=== PATIENT | female | born 1985 | race Caucasian/White ===

== ENCOUNTER 2019-08-18 14:04 | Emergency (ER) | payer BC, SELFPAY ==
[2019-08-18 14:10] VITALS: BP 135/74; PULSE 82; RESP 16; TEMP 36.3; O2SAT 98; BMI 27.8
--- NOTE | 2019-08-18 14:29 | ED_ITS ---
HPI - Wound/Laceration General: Chief Complaint: Wound/Laceration Stated Complaint: FINGER LACERATION Time Seen by Provider: 08/18/19 14:29 Source: patient and RN notes reviewed History of Present Illness: HPI narrative: 33-year-old female was changing a trash bag and cut her right index finger on a piece of glass through the bag. This occurred at her home. She bandaged it tightly and states that the tip of her finger is a little numb but she thinks that is from wrapping it too tight. Tetanus is not up-to-date. Denies any other injuries or symptoms did not do this purpose fully. She is right-hand dominant. Associated symptoms: Denies chills, fever(s), nausea or vomiting Review of Systems General: Reports: 10 or more systems reviewed and unremarkable except in HPI and below Const: Denies: fever or chills Eyes: Denies: change in vision ENMT: Denies: throat pain Card: Denies: chest pain Resp: Denies: shortness of breath GI: Denies: abdominal pain, nausea, vomiting or change in bowel habits : Denies: difficulty urinating Musc: Denies: muscle weakness Skin/Breast: Reports: rash and other (Laceration to right index finger) Neuro: Denies: headache Psych: Denies: hopelessness or suicidal ideation Endo: Denies: excessive urination Richard/Lymph: Denies: easy bruising or easy bleeding All/Imm: Denies: hives PFSH ED PFSH: Social History Smoking and tobacco status: never smoked Physical Exam Const: COMMON NORMALS: no apparent distress, oriented x3, alert and well nourished HENMT: COMMON NORMALS: normocephalic and external nose normal HEAD & SCALP: normocephalic NOSE: external nose normal MOUTH: no trismus Eye: COMMON NORMALS: EOMs intact bilaterally and conjunctivae normal CONJUNCTIVA: Yes conjunctivae normal Resp: EFFORT & INSPECTION: Yes able to speak in complete sentences Neuro: COMMON NORMALS: oriented x3 SENSORIUM/ORIENTATION: Yes alert Psych: COMMON NORMALS: mental status grossly normal Skin: NARRATIVE SKIN EXAM: Less than 1 cm shallow linear laceration to the palmar surface of her right index finger distal phalanx. Bleeding controlled. Normal extension and flexion of the phalanx. Procedures Laceration Laceration 1: Side (If applicable): right Size (cm): 1 Description: linear and clean Depth: simple, single layer Pre-repair: wound explored Skin layer closed with: other (steripstrips and dermabond) Course Vital Signs: Vital signs: Vital Signs Temperature 97.4 F L 08/18/19 14:10 Pulse Rate 72 08/18/19 15:29 Respiratory Rate 16 08/18/19 15:29 Blood Pressure 123/66 08/18/19 15:29 Pulse Oximetry 99 08/18/19 15:29 MDM - Wound/Laceration Imaging Data^: finger xr: My impression: no FB Discharge Plan Discharge Patient Disposition: Home, Self-Care Condition: Stable Prescriptions: No Action No Known Home Medications RF: 0 Referrals: Tish Mathew DO [Primary Care Provider] - Patient Instructions: Finger Laceration (ED) Discharge Date/Time: 08/18/19 15:30 Coding Level of Care Code ED Digital Recruiter for Bry Fwd Exam Detailed
--- NOTE | 2019-08-18 14:35 | XR_ITS ---
WS: [id number] FINGER RIGHT TECHNIQUE: 3 views of the right index finger CLINICAL INFORMATION: rle out fb COMPARISON: None. FINDINGS: Soft tissue laceration index finger. No evidence of radiopaque foreign body. No acute fractures. XR/XR finger RT min 2V [id number] IMPRESSION: No evidence of radiopaque foreign body.
[2019-08-18] MEDS: tetanus-dipt-pertussis 0.5 mL SDV IM (15:22)
[2019-08-18 15:29] VITALS: BP 123/66; PULSE 72; RESP 16; O2SAT 99
== END 2019-08-18 15:30 | disposition home or self-care (01) ==
PROVIDERS: Emergency Provider Emergency Medicine; Family Provider Family Medicine; PCP Family Medicine
DX: S61.210A Laceration without foreign body of right index finger without damage to nail, initial encounter (principal); W25.XXXA Contact with sharp glass, initial encounter; Z23 Encounter for immunization
CPT/HCPCS: 12001; 12345; 73140; 90471; 90715; 99282; A6446

== ENCOUNTER 2020-07-02 20:41 | Emergency (ER) | payer BC, SELFPAY ==
[2020-07-02 20:52] VITALS: BP 128/81; PULSE 92; RESP 16; TEMP 36.8; O2SAT 98; BMI 27.9
--- NOTE | 2020-07-02 21:01 | XR_ITS ---
WS: [id number] Exam: XR chest 2V* [id number] Date/Time of Exam: 07/02/2020 9:01 PM Reason For Exam: SOB x 1 month Findings: The lungs are clear and fully expanded. Costophrenic angles are sharp. No infiltrates. Bronchovascula r relief appears normal. Cardiac silhouette is unremarkable. Bony elements are intact. XR/XR chest 2V* [id number] IMPRESSION: Unremarkable chest radiograph.
--- NOTE | 2020-07-02 21:45 | ECG_ITS ---
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 Measurements Intervals [place] Rate: 100 P: 64 NM: 171 QRS: 51 QRSD: 90 T: -64 QT: 327 QTc: 423 Interpretive Statements SINUS TACHYCARD[address] DEVIATION AND MODERATE T-WAVE ABNORMALITY, CONSIDER LATERAL ISCHEMIA [-0.1+ mV T WAVE IN I/aVL/V5/V6] ST DEVIATION AND MODERATE T-WAVE ABNORMALITY, CONSIDER INFERIOR ISCHEMIA [-0.1+ mV T WAVE IN II/aVF] No previous ECG available for comparison Electronically Signed On 07-03-2020 12:42:26 ELECTRONIC TECHNICIAN by Velma Suazo M.D. [email or web address]
[2020-07-02 22:06] VITALS: BP 137/74; PULSE 78; RESP 18; O2SAT 99
[2020-07-02] MEDS: ondansetron 2 mg/ML SDV 2 mL 4 MG IVP (22:11)
[2020-07-02] MEDS: sodium chloride 0.9% 1,000 ML 999 ML IV (22:11)
[2020-07-02] MEDS: dexamethasone 4 mg/mL INJ 6 MG IVP (22:12)
[2020-07-02 22:15] LABS: Basophils # 0.1 10^3/uL (0.0-0.1); Basophils % 0.5 %; Eosinophils # 0.1 10^3/uL (0.0-0.8); Eosinophils % 0.5 %; Hematocrit 38.8 % (37.0-47.0); Hemoglobin 12.4 g/dL (11.5-15.3); Lymphocytes # 1.8 10^3/uL (0.8-4.8); Lymphocytes % 15.9 %; Mean Corpuscular Hemoglobin 28.4 pg (28.0-34.0); Mean Corpuscular Volume 88.8 fL (81-99); Mean Platelet Volume 10.6 fL (7.4-10.4); Monocytes # 0.5 10^3/uL (0.2-0.9); Monocytes % 4.8 %; Neutrophils # 8.65 10^3/uL (1.8-7.7); Neutrophils % 77.9 %; Nucleated Red Blood Cells % 0 %; Platelet Count 288 10^3/cmm (130-400); Red Blood Count 4.37 10^6/uL (4.1-5.3); White Blood Count 11.1 10^3/uL (4.0-10.0)
[2020-07-02 22:24] LABS: D Dimer 0.41 ug/mIFEU (0-0.59)
[2020-07-02 22:27] LABS: HCG Qualitative Urine. Negative (Negative)
[2020-07-02 22:29] LABS: Troponin(5th) Baseline 6 ng/L (0-10)
[2020-07-02 22:35] LABS: Alanine Aminotransferase 14 U/L (0-33); Albumin Level 4.5 g/dL (3.5-5.2); Alkaline Phosphatase 66 IU/L (35-105); Anion Gap 14.1 (5-19); Aspartate Amino Transferase 16 U/L (0-32); Blood Urea Nitrogen 11 mg/dL (6-20); Calcium 9.3 mg/dL (8.5-10.5); Carbon Dioxide 25 mmol/L (22-29); Chloride 103 mmol/L (98-107); Globulin 3.2 g/dL (1.3-4.6); Glomerular Filtration Rate 114.4 mL/min (90-130); Glucose 106 mg/dL (65-115); Osmolality Calculated 286 mOsm/kg (285-295); Potassium 4.1 mmol/L (3.5-5.1); Sodium 138 mmol/L (136-145); Total Bilirubin 0.2 mg/dL (0.15-1.2); Total Protein 7.7 g/dL (6.6-8.7)
--- NOTE | 2020-07-02 23:31 | W.ED.CHESTPA ---
HPI - Chest Pain General: Chief Complaint: Chest Pain Stated Complaint: cp/right arm numbness Time Seen by Provider: 07/02/20 21:32 History of Present Illness: HPI narrative: The patient is a 34-year-old female who comes to the ER complaining of bitemporal headache, chest pain and, right arm tingling. She says sometimes when she gets migraines they give her tingles all over her entire body and she has been treated with 2 different antibiotics in the past month for a bilateral ear infection. She says she is still having pressure in her ears and it is triggering headaches. She is wondering what is causing it. Her ears are still slightly bulging and red. She is continuing to take Bactrim. MD complaint: chest pain Timing of current episode: episodic Onset: during rest Associated symptoms: Deny abdominal pain, dyspnea or palpitations Review of Systems General: Reports: 10 or more systems reviewed and unremarkable except in HPI and below Const: Denies: fatigue Eyes: Denies: change in vision, blurry vision or eye redness ENMT: Denies: throat pain, swelling of lips/tongue, ear or mastoid pain or nasal congestion Card: Reports: chest pain; Denies: palpitations, irregular heart rhythm, edema, dyspnea on exertion or orthopnea Resp: Denies: dyspnea, productive cough or non-productive cough GI: Denies: abdominal pain, diarrhea or GI cramping : Denies: flank pain, difficulty voiding, urinary frequency or urinary urgency Musc: Denies: neck pain, back pain, extremity pain, joint pain, joint redness, limited range of motion or muscle weakness Skin/Breast: Denies: rash, pruritus, erythema, skin pain or skin tenderness Neuro: Reports: headache(s); Denies: numbness in extremities, weakness in extremities, sensory changes, difficulty walking, dizziness, confusion or Slurred speech present Psych: Denies: anxiety or depression Endo: Denies: polyuria All/Imm: Denies: urticaria, throat swelling or tongue swelling PFSH ED PFSH: Medical History No pertinent past medical history Surgical History H/O removal of cyst Social History Smoking and tobacco status: never smoked Alcohol intake: never Female Reproductive History: Date of last menstrual period: 05/21/20 Physical Exam Const: COMMON NORMALS: no acute distress, average body habitus, patient oriented x3, no limitations, healthy appearing, alert and well nourished GENERAL APPEARANCE: cooperative, comfortable, well kempt and well developed ORIENTATION/CONSCIOUSNESS: Yes awake, Yes oriented to person, Yes oriented to place and Yes oriented to time HENMT: COMMON NORMALS: normocephalic, external ears normal and Normal external nose present HEAD & SCALP: normal to inspection and normocephalic NOSE: Normal external nose present EXTERNAL EAR: Yes external ears normal MOUTH: Normal oral and palatal mucosa present THROAT: posterior oropharynx normal OTHER: Left tympanic membrane bulging with mild erythema. Right tympanic membrane not visible due to cerumen. Eye: COMMON NORMALS: Equal, round and reactive pupils present and EOMs intact bilaterally GENERAL EYE: appearance normal, both eyes and all related structures PUPIL: Yes Equal, round and reactive pupils present Neck/C-Spine: COMMON NORMALS: full ROM, no lymphadenopathy, no meningeal signs and no JVD GENERAL: Yes normal visual inspection Lymph: LYMPHATIC: no lymphadenopathy noted Chest: COMMONS NORMALS: normal inspection of the chest and normal palpation of entire chest wall Resp: COMMON NORMALS: normal respiratory effort, No retractions, No use of accessory muscles, clear to auscultation bilaterally and percussion normal EFFORT & INSPECTION: Yes able to speak in complete sentences AUSCULTATION: clear to auscultation bilaterally PERCUSSION: percussion normal Cardio: COMMON NORMALS: no JVD, regular rate, regular rhythm, S1 normal heart sound present, S2 normal heart sound present and Peripheral pulses 2+ throughout RATE: regular rate RHYTHM: regular rhythm HEART SOUNDS: S1 normal heart sound present and S2 normal heart sound present PERIPHERAL PULSES: Peripheral pulses 2+ throughout GI: COMMON NORMALS: Normal to inspection, nondistended, normoactive bowel sounds present, Soft to palpation, non-tender and no masses INSPECTION: Yes normal to inspection PALPATION: Yes Soft to palpation : COMMON NORMALS: Yes no CVA tenderness BLADDER/KIDNEY EXAM: Yes no CVA tenderness Back/Pelvis: COMMON NORMALS: no CVA tenderness, thoracic and lumbar spine normal to inspection, no thoracic nor lumbar tenderness and thoraco-lumbar ROM normal Extremity: COMMON NORMALS: normal to inspection, full ROM, capillary refill normal, no joint enlargement and no pedal edema GENERAL: Yes normal exam except as noted Neuro: COMMON NORMALS: patient oriented x3, CN's II-XII intact bilaterally, moves all extremities, no focal motor deficits, no sensory deficits noted and gait normal SENSORIUM/ORIENTATION: Yes alert, Yes oriented to person, Yes oriented to place and Yes oriented to time MENINGEAL SIGNS: Yes no meningeal signs Psych: COMMON NORMALS: mental status grossly normal, Normal thought process present, cooperative, normal affect and speech normal APPEARANCE: Yes well kempt ATTITUDE: Yes calm SPEECH: Yes normal speech THOUGHT PROCESS: Normal thought process present Skin: COMMON NORMALS: no rashes or lesions noted GENERAL SKIN EXAM: no rashes or lesions noted Course ED course: She is likely continuing to have headaches from her ear problem. Gave her fluids and IV steroids to help. Likely when her ears adjust her headaches will resolve. We will discharge her with a Medrol Dosepak. She has a primary care physician she can follow-up with in 3 to 5 days. ER with worsening symptoms. Her chest pain is on is unclear cause but unlikely cardiac and it resolved spontaneously in the ER. Vital Signs: Vital signs: Vital Signs Temperature 98.3 F 07/02/20 20:52 Pulse Rate 78 07/02/20 22:06 Respiratory Rate 18 07/02/20 22:06 Blood Pressure 137/74 07/02/20 22:06 Pulse Oximetry 99 07/02/20 22:06 MDM - Chest Pain Lab Data: Labs: Lab Results 07/02/20 07/02/20 07/02/20 Range/Units 22:08 22:08 22:08 WBC 11.1 H (4.0-10.0) 10^3/ uL RBC 4.37 (4.1-5.3) 10^6/u L Hgb 12.4 (11.5-15.3) g/dL Hct 38.8 (37.0-47.0) % MCV 88.8 (81-99) fL MCH 28.4 (28.0-34.0) pg MCHC 32.0 (30.0-36.0) g/dL RDW 13.0 (12.1-15.1) % Plt Count 288 (130-400) 10^3/c mm MPV 10.6 H (7.4-10.4) fL Neut % (Auto) 77.9 % Lymph % (Auto) 15.9 % [place] % (Auto) 4.8 % Eos % (Auto) 0.5 % Baso % (Auto) 0.5 % Neut # (Auto) 8.65 H (1.8-7.7) 10^3/u L Lymph # (Auto) 1.8 (0.8-4.8) 10^3/u L [place] # (Auto) 0.5 (0.2-0.9) 10^3/u L Eos # (Auto) 0.1 (0.0-0.8) 10^3/u L Baso # (Auto) 0.1 (0.0-0.1) 10^3/u L Nucleated RBC % (a uto) 0 % Nucleated RBCs # 0.0 /100WBC D-Dimer 0.41 (0-0.59) ug/mIFE U Sodium 138 (136-145) mmol/L Potassium 4.1 (3.5-5.1) mmol/L Chloride 103 (98-107) mmol/L Carbon Dioxide 25 (22-29) mmol/L Anion Gap 14.1 (5-19) BUN 11 (6-20) mg/dL Creatinine 0.6 (0.5-0.9) mg/dL GFR Calculation 114.4 (90-130) mL/min Glucose 106 (65-115) mg/dL Calculated Osmolal ity 286 (285-295) mOsm/k g Calcium 9.3 (8.5-10.5) mg/dL Total Bilirubin 0.2 (0.15-1.2) mg/dL AST 16 (0-32) U/L ALT 14 (0-33) U/L Alkaline Phosphata se 66 (35-105) IU/L Troponin T Baselin e (0-10) ng/L Total Protein 7.7 (6.6-8.7) g/dL Albumin 4.5 (3.5-5.2) g/dL Globulin 3.2 (1.3-4.6) g/dL HCG, Qual (Negative) 07/02/20 07/02/20 Range/Units 22:08 22:08 WBC (4.0-10.0) 10^3/ uL RBC (4.1-5.3) 10^6/u L Hgb (11.5-15.3) g/dL Hct (37.0-47.0) % MCV (81-99) fL MCH (28.0-34.0) pg MCHC (30.0-36.0) g/dL RDW (12.1-15.1) % Plt Count (130-400) 10^3/c mm MPV (7.4-10.4) fL Neut % (Auto) % Lymph % (Auto) % [place] % (Auto) % Eos % (Auto) % Baso % (Auto) % Neut # (Auto) (1.8-7.7) 10^3/u L Lymph # (Auto) (0.8-4.8) 10^3/u L [place] # (Auto) (0.2-0.9) 10^3/u L Eos # (Auto) (0.0-0.8) 10^3/u L Baso # (Auto) (0.0-0.1) 10^3/u L Nucleated RBC % (a uto) % Nucleated RBCs # /100WBC D-Dimer (0-0.59) ug/mIFE U Sodium (136-145) mmol/L Potassium (3.5-5.1) mmol/L Chloride (98-107) mmol/L Carbon Dioxide (22-29) mmol/L Anion Gap (5-19) BUN (6-20) mg/dL Creatinine (0.5-0.9) mg/dL GFR Calculation (90-130) mL/min Glucose (65-115) mg/dL Calculated Osmolal ity (285-295) mOsm/k g Calcium (8.5-10.5) mg/dL Total Bilirubin (0.15-1.2) mg/dL AST (0-32) U/L ALT (0-33) U/L Alkaline Phosphata se (35-105) IU/L Troponin T Baselin e 6 (0-10) ng/L Total Protein (6.6-8.7) g/dL Albumin (3.5-5.2) g/dL Globulin (1.3-4.6) g/dL HCG, Qual Negative (Negative) Discharge Plan Discharge Patient Disposition: Home Clinical Impression: Headache Condition: Stable Prescriptions: New Medrol (Krishna) 4 mg tablets,dose pack See Rx Instructions .ROUTE .COMPLEX Qty: 21 RF: 0 Discontinued prednisone 20 mg tablet 20 mg PO DAILY 5 Days Qty: 5 RF: 0 No Action amoxicillin-pot clavulanate [Augmentin] 875-125 mg tablet 1 tab PO BID 10 Days Qty: 20 RF: 0 Discharge Orders: Discharge ED (Routine); Ordered 07/02/20 Ordered By: Lenny Benton Referrals: Tish Mathew DO [Primary Care Provider] - Discharge Diet: Advance as tolerated Discharge Activity: Resume usual activity Patient Instructions: Acute Headache (ED), Opioid Safety Activity Restrictions/Additional Instructions: Please take the steroid pack and see if it makes your ears and headache feel better. Please follow-up with your primary care physician in a few days to monitor improvement of your symptoms. Return to the ER with worsening symptoms Coding Level of Care Code ED Athletic Turf Worker for Bry Gaona Exam Comprehensive
[2020-07-03 00:11] VITALS: BP 124/59; PULSE 69; RESP 17; TEMP 36.8; O2SAT 97
== END 2020-07-03 00:11 | disposition home or self-care (01) ==
PROVIDERS: Emergency Provider Family Medicine; PCP Family Medicine
DX: R51.9 Headache, unspecified (principal)
CPT/HCPCS: 71046; 80053; 81025; 84484; 85025; 85378; 93005; 96361; 96374; 96375; 99284; J1100; J2405; J7030

== ENCOUNTER 2020-08-16 08:00 | Outpatient (CLI) | payer BC, SELFPAY ==
--- NOTE | 2020-08-16 08:10 | CT_ITS ---
WS: [id number] CT PARANASAL SINUSES HISTORY: recurrent sinus infection TECHNIQUE: Contiguous 2.5 mm axial images obtained through the sinuses. Images are reconstructed in s agittal and coronal planes. All CT scans at [facility] use at least one of these dose opt imization techniques: automated exposure control; mA and/or kV adjustment per patient size (includes targeted exams where dose is matched to clinical indication); or iterative reconstruction. DLP: 315.73 mGycm COMPARISON: None available. Frontal sinuses: Normal. Sphenoid sinus: Normal. Ethmoid sinuses: Normal. Maxillary sinus: Normal. Ostiomeatal unit: Patent. No significant mucoperiosteal thickening. Very mild reverse S-shaped curvat ure of the nasal septum without significant spurring. Soft tissues around the orbits and globes are n ormal. CT/CT sinus wo con* [id number] IMPRESSION: Negative sinus CT.
== END 2020-08-16 08:01 | disposition home or self-care (01) ==
LOC: RADWPI 08:04
PROVIDERS: PCP Family Medicine; Visit Provider Family Medicine
DX: J32.9 Chronic sinusitis, unspecified (principal)
CPT/HCPCS: 70486

== ENCOUNTER → 2021-02-06 10:06 | Outpatient (BNVA) | payer BC, SELFPAY | PROVIDERS: PCP Family Medicine; Visit Provider Family Medicine | DX: R73.9 Hyperglycemia, unspecified (principal); Z13.6 Encounter for screening for cardiovascular disorders | CPT/HCPCS: 80053; 80061; 83036 ==

== ENCOUNTER → 2021-08-15 09:00 | Outpatient (BNVA) | payer BC, SELFPAY | PROVIDERS: PCP Family Medicine; Visit Provider Obstetrics & Gynecology | DX: Z12.4 Encounter for screening for malignant neoplasm of cervix (principal); Z80.3 Family history of malignant neoplasm of breast | CPT/HCPCS: 87624 ==

== ENCOUNTER 2021-09-13 09:58 | Outpatient (CLI) | payer BC, SELFPAY ==
--- NOTE | 2021-09-13 10:03 | MM_ITS ---
WS: [id number] SCREENING 3D TOMOSYNTHESIS DIGITAL MAMMOGRAM WITH CAD HISTORY: Z12.39 - Encounter for other screening for malignant neoplasm. COMPARISON: None available. Bilateral CC and MLO views submitted. Computer aided detection analyzed. Breast composition: The breasts are heterogeneously dense, which may obscure small masses. No suspici ous masses, microcalcifications or architectural distortion. MM/[place] [id number] IMPRESSION: BI-RADS: 1-Negative FOLLOW UP: 1 Year Follow-up
== END 2021-09-13 09:59 | disposition home or self-care (01) ==
LOC: RAD 10:00
PROVIDERS: PCP Family Medicine; Visit Provider Obstetrics & Gynecology
DX: Z12.39 Encounter for other screening for malignant neoplasm of breast (principal); Z80.3 Family history of malignant neoplasm of breast
CPT/HCPCS: 77063; 77067

== ENCOUNTER → 2022-05-13 12:37 | Outpatient (BNVA) | payer BC, SELFPAY | PROVIDERS: PCP Family Medicine; Visit Provider Family Medicine | DX: J02.0 Streptococcal pharyngitis (principal) | CPT/HCPCS: 87070; 87880 ==

== ENCOUNTER → 2023-05-19 08:48 | Outpatient (BNVA) | payer BC, SELFPAY | PROVIDERS: PCP Family Medicine; Visit Provider Nurse Practitioner Women's Health | DX: Z32.00 Encounter for pregnancy test, result unknown (principal); Z32.01 Encounter for pregnancy test, result positive | CPT/HCPCS: 81025 ==

== ENCOUNTER → 2023-05-29 10:20 | Outpatient (BNVA) | payer BC, SELFPAY | PROVIDERS: PCP Family Medicine; Visit Provider Obstetrics & Gynecology | DX: Z36.87 Encounter for antenatal screening for uncertain dates (principal) | CPT/HCPCS: 76801 ==

== ENCOUNTER → 2023-06-10 08:55 | Outpatient (BNVA) | payer BC, SELFPAY | PROVIDERS: PCP Family Medicine; Visit Provider Nurse Practitioner Women's Health | DX: Z34.90 Encounter for supervision of normal pregnancy, unspecified, unspecified trimester (principal) | CPT/HCPCS: 80307; 82950; 84315; 84439; 84443; 84481; 85025; 86592; 86762; 86803; 86850; 86900; 87086; 87340; 87806 ==

== ENCOUNTER → 2023-06-12 08:00 | Outpatient (BNVA) | payer BC, SELFPAY | PROVIDERS: PCP Family Medicine; Visit Provider Obstetrics & Gynecology | DX: Z34.90 Encounter for supervision of normal pregnancy, unspecified, unspecified trimester (principal) | CPT/HCPCS: 82951; 82952 ==

== ENCOUNTER → 2023-08-18 09:25 | Outpatient (BNVA) | payer BC, SELFPAY | PROVIDERS: PCP Family Medicine; Visit Provider Obstetrics & Gynecology | DX: Z34.92 Encounter for supervision of normal pregnancy, unspecified, second trimester (principal) | CPT/HCPCS: 76805 ==

== ENCOUNTER → 2023-09-16 08:56 | Outpatient (BNVA) | payer BC, SELFPAY | PROVIDERS: PCP Family Medicine; Visit Provider Obstetrics & Gynecology | DX: Z34.82 Encounter for supervision of other normal pregnancy, second trimester (principal) | CPT/HCPCS: 76816; 81000 ==

== ENCOUNTER → 2023-10-14 09:28 | Outpatient (BNVA) | payer BC, SELFPAY | PROVIDERS: PCP Family Medicine; Visit Provider Obstetrics & Gynecology | DX: Z34.90 Encounter for supervision of normal pregnancy, unspecified, unspecified trimester (principal) | CPT/HCPCS: 82950; 84315 ==

== ENCOUNTER → 2023-11-03 08:21 | Outpatient (BNVA) | payer BC, SELFPAY | PROVIDERS: PCP Family Medicine; Visit Provider Obstetrics & Gynecology | DX: Z34.90 Encounter for supervision of normal pregnancy, unspecified, unspecified trimester (principal) | CPT/HCPCS: 82947; 82951 ==

== ENCOUNTER → 2023-12-09 07:58 | Outpatient (BNVA) | payer BC, SELFPAY | PROVIDERS: PCP Family Medicine; Visit Provider Obstetrics & Gynecology | DX: Z34.90 Encounter for supervision of normal pregnancy, unspecified, unspecified trimester (principal) | CPT/HCPCS: 76816; 87081 ==

== ENCOUNTER 2023-12-13 11:12 | Outpatient (CLI) | payer BC, SELFPAY ==
[2023-12-13 11:10] VITALS: RESP 16; BMI 33.0
[2023-12-13 11:18] VITALS: BP 122/66; PULSE 88
[2023-12-13 11:33] VITALS: BP 123/65; PULSE 80
[2023-12-13 14:40] VITALS: BP 123/65; PULSE 80
== END 2023-12-13 12:00 ==
LOC: OPOB 11:13 → OBGYN 11:14
PROVIDERS: PCP Family Medicine; Visit Provider Obstetrics & Gynecology
DX: O24.419 Gestational diabetes mellitus in pregnancy, unspecified control (principal); Z3A.00 Weeks of gestation of pregnancy not specified
CPT/HCPCS: 59025

== ENCOUNTER 2023-12-16 08:55 | Outpatient (CLI) | payer BC, SELFPAY ==
[2023-12-16 09:05] VITALS: BP 138/81; PULSE 85
[2023-12-16 09:15] VITALS: BMI 33.1
[2023-12-16 09:30] VITALS: BP 111/60; PULSE 81
== END 2023-12-16 10:05 | disposition home or self-care (01) ==
LOC: OPOB 08:56 → OBGYN 08:57
PROVIDERS: PCP Family Medicine; Visit Provider Obstetrics & Gynecology
DX: O24.419 Gestational diabetes mellitus in pregnancy, unspecified control (principal); Z3A.00 Weeks of gestation of pregnancy not specified
CPT/HCPCS: 59025; 84315

== ENCOUNTER 2023-12-20 08:59 | Outpatient (CLI) | payer BC, SELFPAY ==
[2023-12-20 09:04] VITALS: BP 139/73; PULSE 84
[2023-12-20 09:05] VITALS: BMI 33.3
[2023-12-20 09:24] VITALS: BP 134/70; PULSE 81
[2023-12-20 09:43] VITALS: BP 134/70; PULSE 81
== END 2023-12-20 09:35 | disposition home or self-care (01) ==
LOC: OPOB 08:59 → OBGYN 09:00
PROVIDERS: PCP Family Medicine; Visit Provider Obstetrics & Gynecology
DX: O24.419 Gestational diabetes mellitus in pregnancy, unspecified control (principal); Z3A.00 Weeks of gestation of pregnancy not specified
CPT/HCPCS: 59025; 99211

== ENCOUNTER 2023-12-23 08:57 | Outpatient (CLI) | payer BC, SELFPAY ==
[2023-12-23 09:00] VITALS: BMI 33.1
[2023-12-23 09:05] VITALS: BP 131/79
== END 2023-12-23 09:45 ==
LOC: OPOB 08:58 → OBGYN 09:11
PROVIDERS: PCP Family Medicine; Visit Provider Obstetrics & Gynecology
DX: O24.419 Gestational diabetes mellitus in pregnancy, unspecified control (principal); Z3A.00 Weeks of gestation of pregnancy not specified
CPT/HCPCS: 59025; 84315

== ENCOUNTER 2023-12-27 08:29 | Outpatient (CLI) | payer BC, SELFPAY ==
[2023-12-27 08:30] VITALS: BMI 33.0
[2023-12-27 08:33] VITALS: BP 136/76; PULSE 88
[2023-12-27 08:53] VITALS: BP 127/72; PULSE 90
[2023-12-27 09:04] VITALS: BP 127/72; PULSE 90
== END 2023-12-27 09:00 | disposition home or self-care (01) ==
LOC: OPOB 08:30 → OBGYN 08:31
PROVIDERS: PCP Family Medicine; Visit Provider Obstetrics & Gynecology
DX: O24.419 Gestational diabetes mellitus in pregnancy, unspecified control (principal); Z3A.00 Weeks of gestation of pregnancy not specified
CPT/HCPCS: 59025; 99211

== ENCOUNTER 2023-12-30 09:47 | Outpatient (CLI) | payer BC, SELFPAY ==
[2023-12-30 09:50] VITALS: BMI 33.0
[2023-12-30 10:01] VITALS: BP 123/74; PULSE 99
[2023-12-30 10:21] VITALS: BP 123/76; PULSE 85
[2023-12-30 10:41] VITALS: BP 110/55; PULSE 75
[2023-12-30 11:01] VITALS: BP 125/59; PULSE 75
[2023-12-30 11:25] VITALS: BP 125/59; PULSE 75; RESP 16
== END 2023-12-30 11:15 | disposition home or self-care (01) ==
LOC: OPOB 09:48 → OBGYN 09:49
PROVIDERS: Absent Provider Obstetrics & Gynecology; PCP Family Medicine; Visit Provider Obstetrics & Gynecology
DX: O16.9 Unspecified maternal hypertension, unspecified trimester (principal); O24.419 Gestational diabetes mellitus in pregnancy, unspecified control; Z3A.00 Weeks of gestation of pregnancy not specified
CPT/HCPCS: 59025; 84315; 99211

== ENCOUNTER 2024-01-01 13:00 | Inpatient (IN) | payer BC, SELFPAY ==
[2024-01-01] VITALS (28 sets, daily range): BP systolic 124–169; BP diastolic 58–95; PULSE 74–123; RESP 16–18; TEMP 36.7–36.9; O2SAT 97; BMI 32.5
[2024-01-01 12:27] LABS: Basophils % 0.2 %; Eosinophils % 0.1 %; Hematocrit 39.8 % (36-47); Lymphocytes # 1.6 10^3/uL (0.8-4.8); Lymphocytes % 16.9 %; Mean Corpuscular HGB Conc 32.9 g/dL (30-55); Mean Corpuscular Hemoglobin 28.8 pg (27-33); Mean Corpuscular Volume 87.5 fl (85-98); Mean Platelet Volume 11.2 fL (7.4-10.4); Monocytes # 0.5 10^3/uL (0.2-0.9); Monocytes % 4.8 %; Neutrophils # 7.43 10^3/uL (1.8-7.7); Neutrophils % 77.7 %; Nucleated Red Blood Cells % 0 %; Platelet Count 279 10^3/cmm (157-399); Red Blood Count 4.55 10^6/uL (3.85-5.65); Red Cell Distribution Width 14.5 % (12.1-15.1); White Blood Count 9.57 10^3/uL (3.29-11.43)
--- NOTE | 2024-01-01 13:26 | PM.OPHPUD ---
Labor & Delivery H&P Update Date of Procedure: January 01, 2024 Date H&P Performed: 12/30/23 H&P update information: I have reviewed H&P completed within last 30 days, I have examined patient prior to procedure and Changes to prior documentation as noted here (Cervix 6cm dilation) Admission Diagnosis:
[2024-01-01] MEDS: dextrose 5%-lactated ringers 1,000 ML 125 ML IV (13:50)
--- NOTE | 2024-01-01 13:53 | PM.DELIVERY ---
Delivery Note: Date of delivery: January 01, 2024 Pre-delivery diagnoses: Term Post-delivery diagnoses: Term delivered Procedure: Spontaneous vaginal delivery Delivering Physician: Donavon Álvarez MD Estimated blood loss (mL): 300 Delivery: The patient was noted to be complete and pushing, so was placed in the dorsal lithotomy position, prepped and draped in the usual sterile fashion for a vaginal delivery. Pt. Noted to have epidural anesthesia. At 1346 the patient delivered a viable term female weighing 3035 g with scores of 8 and 9 at one and five minutes, respectively. The vertex was delivered spontaneously over intact perineum. The patient was asked to push and the head delivered spontaneously in the TORI position, over an intact perineum. A nuchal cord was checked and none noted.. The anterior shoulder delivered easily and the posterior shoulder followed. The remainder of the infant was easily delivered and the oropharynx and nasopharynx was bulb suctioned. The infant was noted to have spontaneous cry and spontaneous movement of all four extremities. The cord was clamped x 2 and cut and noted to have 2 arteries and one vein. The was passed to the mother's abdomen where nursing personnel were in attendance. The placenta delivered intact spontaneously and the uterus was explored. 20 units of Pitocin was placed in the IV bag to firm the uterus. Examination of the cervix and vaginal vault did not reveal any lacerations. Examination of the perineum showed no laceration. The vaginal pack was then removed. The patient tolerated this procedure well, and recovered in L&D with her infant in their LDR room. All sponge and needle counts were correct. Post-Delivery Status: Good and stable History History History 4 Term 3 0 Miscarriages/Ectopic 0 Living Children 3 A&P Assessment and plan (1) Term delivered: Coding Level of Care Code Acute Code for Chg Fwd Diagnoses Term delivered O80
[2024-01-01] MEDS: oxytocin 30 UNIT/500 ML BAG 600 UNIT IV (13:59)
[2024-01-01] MEDS: benzocaine-menthol 78 gm Canister 1 SPRAY TOPICAL (15:19)
[2024-01-01] MEDS: lanolin oint 7 gm 1 APPLIC TOPICAL (15:20)
[2024-01-01] MEDS: docusate sodium 100 mg Capsule PO (22:00)
[2024-01-01 22:06] LABS: Glucose Point of Care 100 mg/dL (70-110)
[2024-01-02 03:02] LABS: Hematocrit 35.3 % (36-47); Mean Corpuscular HGB Conc 32.3 g/dL (30-55); Mean Corpuscular Hemoglobin 28.6 pg (27-33); Mean Corpuscular Volume 88.7 fl (85-98); Mean Platelet Volume 10.9 fL (7.4-10.4); Platelet Count 225 10^3/cmm (157-399); Red Blood Count 3.98 10^6/uL (3.85-5.65); Red Cell Distribution Width 14.6 % (12.1-15.1); White Blood Count 10.82 10^3/uL (3.29-11.43)
[2024-01-02 03:43] VITALS: BP 122/77; PULSE 76; RESP 16; TEMP 36.6; O2SAT 97
[2024-01-02] MEDS: PRENATAL VIT NO.130/IRON/FOLIC 1 EACH TABLET PO (08:37)
[2024-01-02] MEDS: docusate sodium 100 mg Capsule PO (08:37)
[2024-01-02 10:50] VITALS: BP 116/69; PULSE 75; RESP 16; TEMP 36.6
--- NOTE | 2024-01-02 14:05 | P.PN_ITS ---
HOGSHEAD STOCK CLERK Subjective 2 Subjective: Interval history: no c/o no bleeding, pain eating, voiding, ambulating well caring for without any problems Labor: Station: -1 Amniotic Membrane Status: Ruptured Monitor Mode: Palpation Contraction Pattern: Regular Vitals/I&O/Wt Last Vital Signs Temp 98.1 F 01/02/24 14:50 Pulse 92 01/02/24 14:50 Resp 16 01/02/24 14:50 BP 119/68 01/02/24 14:50 Pulse Ox 97 01/02/24 03:43 O2 Del Method Room Air 01/02/24 10:50 Weight last 48 hrs Weight 227 lb Physical Exam 2 Narrative: afebrile, VS normal comfortable, awake, alert Abd: soft, nontender. fundus firm Ext: no edema; nontender Data 01/02/24 02:56 A&P Assessment and plan (1) Vaginal delivery: PPD #1 doing well discharge to home today instructions and precautions given call/return if fever, chills, headache, blurry vision, nausea, vomiting, abdominal pain; vaginal bleeding or discharge; shortness of breath, chest pain, leg pains or swelling; inability to void, perineal pain or swelling; feelings of depression or mood changes; thoughts of suicide or harming others; inability to care for baby. f/u in 6 weeks or PRN Attestations 2 Medical Necessity Statement*: patient s/p vaginal delivery, plan to discharge to home today Coding Level of Care Code Acute Code for Chg Fwd Diagnoses Vaginal delivery O80 Time Spent (min) 20
--- NOTE | 2024-01-02 14:10 | PM.OBGYDC ---
Discharge Providers AVIONICS TECHNICIAN Date of Admission: 01/01/24 13:00 Date of Discharge: 01/02/24 Attending Provider at Admission: Lazaro Mullins MD Attending Provider at Discharge: Lazaro Mullins MD Consults: none Primary AVIONICS TECHNICIAN: Lazaro Mullins MD Diagnoses at Discharge Discharge Diagnosis (1) Vaginal delivery: Details from hospital stay: 37 y.o. at 39 w 4 d presented with active labor patient progressed rapidly had spontaneous vaginal delivery with repair of second-degree perineal laceration without any complications patient did well and was discharged to home on the first day Status: Acute Reason for Visit Reason for Visit: Spotting Brief History: 37 y.o. at 39 w 4 d presented with active labor Hospital Course Hospital Course 37 y.o. at 39 w 4 d presented with active labor patient progressed rapidly had spontaneous vaginal delivery with repair of second-degree perineal laceration without any complications patient did well and was discharged to home on the first day Information Peripartum Data: Infant Delivery Method: Vaginal Laceration description: Perineal - 2nd Degree Episiotomy description: None complications: none Physical Exam Narrative: afebrile, VS normal comfortable, awake, alert Abd: soft, nontender. fundus firm Ext: no edema; nontender History History History 4 Term 3 0 Miscarriages/Ectopic 0 Living Children 3 Discharge Data Studies Completed and Pending Laboratory Results WBC 10.82 10^3/uL (3.29-11.43) 01/02/24 02:56 RBC 3.98 10^6/uL (3.85-5.65) 01/02/24 02:56 Hgb 11.40 g/dL (11.27-16.99) 01/02/24 02:56 Hct 35.3 % (36-47) L 01/02/24 02:56 MCV 88.7 fl (85-98) 01/02/24 02:56 MCH 28.6 pg (27-33) 01/02/24 02:56 MCHC 32.3 g/dL (30-55) 01/02/24 02:56 RDW 14.6 % (12.1-15.1) 01/02/24 02:56 Plt Count 225 10^3/cmm (157-399) 01/02/24 02:56 MPV 10.9 fL (7.4-10.4) H 01/02/24 02:56 Neut % (Auto) 77.7 % 01/01/24 11:42 Lymph % (Auto) 16.9 % 01/01/24 11:42 [place] % (Auto) 4.8 % 01/01/24 11:42 Eos % (Auto) 0.1 % 01/01/24 11:42 Baso % (Auto) 0.2 % 01/01/24 11:42 Neut # (Auto) 7.43 10^3/uL (1.8-7.7) 01/01/24 11:42 Lymph # (Auto) 1.6 10^3/uL (0.8-4.8) 01/01/24 11:42 [place] # (Auto) 0.5 10^3/uL (0.2-0.9) 01/01/24 11:42 Eos # (Auto) 0.0 10^3/uL (0.0-0.8) 01/01/24 11:42 Baso # (Auto) 0.0 10^3/uL (0.0-0.1) 01/01/24 11:42 Nucleated RBC % (auto) 0 % 01/01/24 11:42 Nucleated RBCs # 0.0 /100WBC 01/01/24 11:42 POC Glucose 100 mg/dL (70-110) 01/01/24 21:56 Blood Type A Positive 01/01/24 11:42 Rho(D) Type Rh positive 01/01/24 11:42 Antibody Screen Negative 01/01/24 11:42 Procedures Performed vaginal delivery repair of second-degree perineal laceration Vitals Last Vital Signs Temp 98.1 F 01/02/24 14:50 Pulse 92 01/02/24 14:50 Resp 16 01/02/24 14:50 BP 119/68 01/02/24 14:50 Pulse Ox 97 01/02/24 03:43 O2 Del Method Room Air 01/02/24 10:50 Results Labs OB ([facility]): Obstetrics US 12/09/23 Blood Type A Positive 01/01/24 Antibody Screen Negative 01/01/24 Hct 35.3 % (36-47) L 01/02/24 Hgb 11.40 g/dL (11.27-16.99) 01/02/24 Rho(D) Type Rh positive 01/01/24 Plt Count 225 10^3/cmm (157-399) 01/02/24 Hep Bs Antigen Non-reactive (Nonreactive) 06/10/23 Hepatitis C Antibody Non-reactive (Nonreactive) 06/10/23 Rubella IgG Antibody 26.7 IU/mL (0.0-10.0) H 06/10/23 RPR Nonreactive (Nonreactive) 06/10/23 HIV 1&2 Ab & HIV 1 Ag Non-reactive (Non-Reactiv) 06/10/23 TSH 1.54 uIU/mL (0.27-4.20) 06/10/23 Free T4 1.06 ng/dL (0.82-1.77) 06/10/23 Glucose 1 Hr 50 gm 152 mg/dL (85-140) H 10/14/23 Gest Glucose Tolerance mg/dL 06/12/23 Hemoglobin A1c 5.3 % (4.0-6.0) 02/06/21 HCG, Qual Positive (Negative) H 05/19/23 Urine Opiates Screen Negative ng/mL (Negative) 06/10/23 Ur Barbiturates Screen Negative ng/mL (Negative) 06/10/23 Ur Phencyclidine Scrn Negative ng/mL (Negative) 06/10/23 Ur Amphetamines Screen Negative ng/mL (Negative) 06/10/23 U Benzodiazepines Scrn Negative ng/mL (Negative) 06/10/23 Urine Cocaine Screen Negative ng/mL (Negative) 06/10/23 U Marijuana (THC) Screen Negative ng/mL (Negative) 06/10/23 Micro Urine Specimen 06/10/23 Pap Smear Interpret See note 08/15/21 Discharge Plan Discharge Patient Disposition: Home Condition: Stable Prescriptions: Continued DHA 200 mg capsule 200 mg PO DAILY Discontinued insulin glargine [Lantus U-100 Insulin] 100 unit/mL solution 5 unit SUBCUT BID Qty: 10 1RF pen needle, diabetic [BD Ultra-Fine Short Pen Needle] 31 gauge x 5/16 needle See Rx Instructions miscellaneous .COMPLEX Qty: 50 0RF Rx Instructions: as directed as directed; Discharge Orders: Discharge Order (Routine); Ordered 01/02/24 Ordered By: Lazaro Mullins Referrals: Brasier,Radha, [facility] [Nurse Practitioner] - 02/12/24 1:45 pm Discharge Diet: Usual diet Discharge Activity: Resume usual activity Patient Instructions: Depression (DC), Bleeding (DC), Preeclampsia and Eclampsia After Delivery (GEN), Hemorrhage (DC), OB Discharge Report, OB Food/Drug Interaction Guide, Opioid Safety, OB Home Care, OB Proud Parent Packet, OB Vaginal Deliveries - [facility] Discharge Attestations AVIONICS TECHNICIAN Time Spent in Discharge Care*: less than 30 min Coding Level of Care Code Acute Code for Chg Fwd Diagnoses Vaginal delivery O80 Time Spent (min) 20
[2024-01-02 14:50] VITALS: BP 119/68; PULSE 92; RESP 16; TEMP 36.7
== END 2024-01-02 15:05 | disposition home or self-care (01) | DRG 807 ==
LOC: OPOB 14:01 → OBGYN 14:01
PROVIDERS: Obstetrics & Gynecology; Admitting Provider Obstetrics & Gynecology; Visit Provider Obstetrics & Gynecology
DX: O80 Encounter for full-term uncomplicated delivery (principal); Z37.0 Single live birth; Z3A.39 39 weeks gestation of pregnancy
CPT/HCPCS: 36415; 36416; 59025; 59409; 80048; 82962; 85025; 85027; 86850; 86900; 98960; 99211; J2590; J7121

== ENCOUNTER → 2025-02-17 12:45 | Outpatient (BNVA) | payer BC, SELFPAY | PROVIDERS: Visit Provider Nurse Practitioner Women's Health | DX: Z01.419 Encounter for gynecological examination (general) (routine) without abnormal findings (principal) | CPT/HCPCS: 80053; 82306; 83036; 84443; 85025 ==